=== PATIENT | female | born 1960 | race Caucasian/White ===

== ENCOUNTER → 2017-03-19 | Outpatient (CLI) | payer OTHER | END | disposition home or self-care (01) | LOC: ECHO 08:12 | DX: I08.2 Rheumatic disorders of both aortic and tricuspid valves (principal); I49.3 Ventricular premature depolarization; R01.1 Cardiac murmur, unspecified | CPT/HCPCS: 93306 ==

== ENCOUNTER → 2020-05-15 | Outpatient (CLI) | payer OTHER ==
--- NOTE | 2020-05-15 14:59 | CARD ---
MR#: [id number] Date of Study: 05/15/2020 Ordering Physician: BERNADINE DEJESUS, Referring Physician: BERNADINE DEJESUS, Tech: Kandis Priyanka, [facility] APPROVED REPORT EXAM: Two-dimensional and M-mode echocardiogram with Doppler and color Doppler. Other Information Quality : AverageHR: 58bpm INDICATION Aortic Valve Disease RISK FACTORS Hyperlipidemia 2D DIMENSIONS RVDd3.3 (2.9-3.5cm)Left Atrium(2D)3.4 (1.6-4.0cm) IVSd0.9 (0.7-1.1cm)Aortic Root(2D)2.7 (2.0-3.7cm) LVDd4.3 (3.9-5.9cm)LVOT Diameter2.0 (1.8-2.4cm) PWd1.0 (0.7-1.1cm)LVDs2.6 (2.5-4.0cm) FS (%) 39.3 %SV58.0 ml LVEF(%)60.1 (>50%) Aortic Valve AoV Peak Hai.220.7cm/sAoV VTI45.8cm AO Peak GR.19.5mmHgLVOT Peak Hai.94.4cm/s LVOT VTI 24.58cmAO Mean GR.10mmHg LAUREL (VMAX)1.05hh8SOF (VTI)1.67cm2 AI P 1/2 Ffxw241ey Mitral Valve MV E Thdhfxct02.1cm/sMV DECEL RDUO858et MV A Shlvqmhk37.9cm/sMV EKW81tm E/A Ratio0.9MVA (PHT)3.68cm2 TDI E/Lateral E'9.5E/Medial E'11.3 Pulmonary Valve PV Peak Rvhesrnd87.9cm/sPV Peak Grad.3mmHg Tricuspid Valve TR P. Ijtkvpbz011bg/sRAP THPSMTDK4krPk TR Peak Gr.77maFcRFRQ15cwPd LEFT VENTRICLE The left ventricle is normal size. There is normal left ventricular wall thickness. The left ventricu lar systolic function is normal and the ejection fraction is within normal range. The Ejection Fracti on is 55-60%. There is normal LV segmental wall motion. Transmitral Doppler flow pattern is Grade I-a bnormal relaxation pattern. RIGHT VENTRICLE The right ventricle is normal size. There is normal right ventricular wall thickness. The right ventr icular systolic function is normal. ATRIA The left atrium size is normal. The right atrium size is normal. The interatrial septum is intact wit h no evidence for an atrial septal defect or patent foramen ovale as noted on 2-D or Doppler imaging. AORTIC VALVE The aortic valve is calcified. Doppler and Color Flow revealed mild aortic regurgitation. Calculated aortic valve area is 1.17 cm2 with maximum pressure gradient of 25 mmHg and mean pressure gradient of 12 mmHg. There is mild to moderate valvular aortic stenosis. MITRAL VALVE The mitral valve is normal in structure and function. There is no evidence of mitral valve prolapse. There is no mitral valve stenosis. Doppler and Color-flow revealed trace mitral regurgitation. TRICUSPID VALVE The tricuspid valve is normal in structure and function. Doppler and Color Flow revealed trace tricus pid regurgitation with an estimated PAP of 22 mmHg. There is no tricuspid valve stenosis. PULMONIC VALVE The pulmonic valve is not well visualized. Doppler and Color Flow revealed trace pulmonic valvular re gurgitation. GREAT VESSELS The aortic root is normal in size. The IVC is dilated and collapses >50% with inspiration. PERICARDIAL EFFUSION There is no evidence of significant pericardial effusion. Critical Notification Critical Value: No <Conclusion> The left ventricle is normal size. The left ventricular systolic function is normal and the ejection fraction is within normal range. The Ejection Fraction is 55-60%. The aortic valve is calcified. Doppler and Color Flow revealed mild aortic regurgitation. Calculated aortic valve area is 1.17 cm2 with maximum pressure gradient of 25 mmHg and mean pressure gradient of 12 mmHg. There is mild to moderate valvular aortic stenosis. Doppler and Color-flow revealed trace mitral regurgitation. Doppler and Color Flow revealed trace tricuspid regurgitation with an estimated PAP of 22 mmHg. Signed by : Adan Montoya MD Electronically Approved : 05/15/2020 14:59:04
== END ==
LOC: ECHO 13:04
PROVIDERS: ATTEND Internal Medicine Cardiovascular Disease
DX: I35.1 Nonrheumatic aortic (valve) insufficiency (principal)
CPT/HCPCS: 93306

== ENCOUNTER → 2021-07-08 | Outpatient (CLI) | payer OTHER ==
--- NOTE | 2021-07-08 17:14 | CARD ---
MR#: [id number] Date of Study: 07/08/2021 Ordering Physician: ADRIANO DEJESUS, Referring Physician: ADRIANO DEJESUS, Tech: Mya Dunne [facility] APPROVED REPORT EXAM: Two-dimensional and M-mode echocardiogram with Doppler and color Doppler. Other Information Quality : Good Rhythm : NSR INDICATION Aortic Valve Disease 2D DIMENSIONS RVDd2.9 (2.9-3.5cm)Left Atrium(2D)3.7 (1.6-4.0cm) IVSd0.9 (0.7-1.1cm)Aortic Root(2D)2.9 (2.0-3.7cm) LVDd3.9 (3.9-5.9cm)LVOT Diameter1.9 (1.8-2.4cm) PWd0.9 (0.7-1.1cm)LVDs3.0 (2.5-4.0cm) FS (%) 23.1 %SV30.4 ml LVEF(%)47.0 (>50%) Aortic Valve AoV Peak Hai.243.2cm/sAoV VTI56.0cm AO Peak GR.23.7mmHgAO Mean GR.14mmHg AI P 1/2 Orlt777ka Mitral Valve MV E Dzywakoy80.4cm/sMV E Peak Gr.38mmHg MV DECEL MXSR791pmMP A Rlvzydoy277.4cm/s MV TRP20mtR/A Ratio0.9 MVA (PHT)3.03cm2 TDI E/Medial E'12.1 Pulmonary Valve PV Peak Cqytaaug721.7cm/sPV Peak Grad.4mmHg Tricuspid Valve TR P. Tutyknsg906aj/sRAP UUVFWEUW5axFw TR Peak Gr.41pqGlFBCF55ubIq LEFT VENTRICLE The left ventricle is normal size. There is normal left ventricular wall thickness. Left ventricular systolic function is normal. EF 55% No regional wall motion abnormalities noted. Tissue Doppler imagi ng reveals mild left ventricular diastolic dysfunction. No left ventricle thrombus noted on this stud y. There is no ventricular septal defect visualized. There is no left ventricular aneurysm. There is no mass noted in the left ventricle. RIGHT VENTRICLE The right ventricle is normal size. There is normal right ventricular wall thickness. The right ventr icular systolic function is normal. ATRIA The left atrium size is normal. The right atrium size is normal. The interatrial septum is intact wit h no evidence for an atrial septal defect or patent foramen ovale as noted on 2-D or Doppler imaging. AORTIC VALVE The aortic valve is moderately calcified with restricted leaflet motion. Doppler and Color Flow revea led mild to moderate aortic regurgitation. There is mild valvular aortic stenosis. Calculated aortic valve area is cm2 with maximum pressure gradient of 23.7 mmHg and mean pressure gradient of 13.3 mmHg . There is no aortic valvular vegetation. MITRAL VALVE The mitral valve is normal in structure and function. There is no evidence of mitral valve prolapse. There is no mitral valve stenosis. Doppler and Color-flow revealed mild mitral regurgitation. TRICUSPID VALVE The tricuspid valve is normal in structure and function. Doppler and Color Flow revealed mild tricusp id regurgitation. The pulmonary artery systolic pressure is estimated at less than 30 mmHg. There is no tricuspid valve prolapse or vegetation. There is no tricuspid valve stenosis. PULMONIC VALVE There is no pulmonic valvular regurgitation. There is no pulmonic valvular stenosis. GREAT VESSELS The aortic root is normal in size. The ascending aorta is normal in size. The IVC is normal in size a nd collapses >50% with inspiration. PERICARDIAL EFFUSION There is no pleural effusion. There is no evidence of significant pericardial effusion. Critical Notification Critical Value: No <Conclusion> Left ventricular systolic function is normal. EF 55% No regional wall motion abnormalities noted. There is mild valvular aortic stenosis. Calculated aortic valve area is cm2 with maximum pressure gr adient of 23.7 mmHg and mean pressure gradient of 13.3 mmHg. Doppler and Color Flow revealed mild tricuspid regurgitation. The pulmonary artery systolic pressure is estimated at less than 30 mmHg. Signed by : Adriano Dejesus, Electronically Approved : 07/08/2021 17:14:18
== END ==
LOC: ECHO 08:51
PROVIDERS: ATTEND Internal Medicine Cardiovascular Disease
DX: I08.3 Combined rheumatic disorders of mitral, aortic and tricuspid valves (principal)
CPT/HCPCS: 93306; C8929